=== PATIENT | female | born 1975 | race Native Hawaiian/Other Pacific Islander ===

== ENCOUNTER 2020-06-12 16:10 | Emergency (ER) | payer OTHER ==
[~2020-06-12] VITALS: Ht 165.1 cm; Wt 74.8 kg
[2020-06-12 16:15] VITALS: TEMP 98.8
[2020-06-12 18:04] VITALS: BP 155/90
== END 2020-06-12 18:04 | disposition home or self-care (01) ==
LOC: ED 16:10
PROC: 2W3DX1Z Immobilization of Left Lower Arm using Splint (ICD-10-PCS; principal; 2020-06-12)
DX: S52.592A Other fractures of lower end of left radius, initial encounter for closed fracture (principal); W18.09XA Striking against other object with subsequent fall, initial encounter; Y92.89 Other specified places as the place of occurrence of the external cause
CPT/HCPCS: 96372; 99283; J1885